=== PATIENT | female | born 1940 | race Caucasian/White ===

== ENCOUNTER 2019-02-10 06:00 | Outpatient (CLI) | payer MEDICARE, OTHER, SELFPAY | END 2019-02-10 06:01 | disposition home or self-care (01) | LOC: LAB 01-26 14:26 | PROVIDERS: Family Provider Registered Nurse; PCP Registered Nurse; Visit Provider Nurse Practitioner Family | DX: I10 Essential (primary) hypertension (principal) | CPT/HCPCS: 80048; 85025 ==

== ENCOUNTER → 2020-05-18 08:35 | Outpatient (BNVA) | payer MEDICARE, OTHER, SELFPAY | PROVIDERS: Family Provider Registered Nurse; PCP Registered Nurse; Referring Provider Family Medicine; Visit Provider Orthopaedic Surgery | DX: S52.352A Displaced comminuted fracture of shaft of radius, left arm, initial encounter for closed fracture (principal); S52.612A Displaced fracture of left ulna styloid process, initial encounter for closed fracture; X58.XXXA Exposure to other specified factors, initial encounter; Z46.89 Encounter for fitting and adjustment of other specified devices; S52.502S Unspecified fracture of the lower end of left radius, sequela; X58.XXXS Exposure to other specified factors, sequela | CPT/HCPCS: 73110; 87635; 97760; L3982 ==

== ENCOUNTER 2020-05-18 10:14 | Outpatient (CLI) | payer MEDICARE, OTHER, SELFPAY | END 2020-05-18 10:15 | disposition home or self-care (01) | LOC: SPT 10:16 | PROVIDERS: Family Provider Registered Nurse; PCP Registered Nurse; Visit Provider Orthopaedic Surgery | DX: Z46.89 Encounter for fitting and adjustment of other specified devices (principal); S52.502S Unspecified fracture of the lower end of left radius, sequela; X58.XXXS Exposure to other specified factors, sequela | CPT/HCPCS: 87635; 97760; L3982 ==

== ENCOUNTER 2020-05-23 13:30 | Day surgery (SDC) | payer MEDICARE, OTHER, SELFPAY ==
[2020-05-22 16:04] VITALS: BMI 33.6
[2020-05-23] VITALS (10 sets, daily range): BP systolic 136–196; BP diastolic 70–102; PULSE 69–86; RESP 15–23; TEMP 36.3–36.6; O2SAT 93–98
--- NOTE | 2020-05-23 | SCC_ITS ---
Procedure Done: ORIF extra articular distal radius fracture left 14.7 seconds of fluoroscopic guidance, for a cumulative dose of 0.23 mGy, was provided to Dr. Castellon by the radiology department. C-arm images of the LEFT wrist were saved for the patient's permanent record. [facility]
[2020-05-23 14:28] LABS: Basophils # 0.1 10^3/uL (0.0-0.1); Basophils % 0.9 %; Eosinophils # 0.5 10^3/uL (0.0-0.8); Eosinophils % 8.2 %; Hematocrit 42.9 % (37.0-47.0); Hemoglobin 13.4 g/dL (11.5-15.3); Lymphocytes % 35.4 %; Mean Corpuscular HGB Conc 31.2 g/dL (30.0-36.0); Mean Corpuscular Hemoglobin 30.8 pg (28.0-34.0); Mean Corpuscular Volume 98.6 fL (81-99); Mean Platelet Volume 10.3 fL (7.4-10.4); Monocytes # 0.8 10^3/uL (0.2-0.9); Monocytes % 13.7 %; Neutrophils # 2.37 10^3/uL (1.8-7.7); Neutrophils % 41.6 %; Nucleated Red Blood Cells % 0 %; Platelet Count 294 10^3/cmm (130-400); Red Blood Count 4.35 10^6/uL (4.1-5.3); Red Cell Distribution Width 13.1 % (12.1-15.1); White Blood Count 5.7 10^3/uL (4.0-10.0)
[2020-05-23 14:40] LABS: Anion Gap 12.9 (5-19); Blood Urea Nitrogen 25 mg/dL (8-23); Calcium 8.7 mg/dL (8.5-10.5); Carbon Dioxide 28 mmol/L (22-29); Chloride 101 mmol/L (98-107); Glucose 86 mg/dL (65-115); Osmolality Calculated 290 mOsm/kg (285-295); Potassium 3.9 mmol/L (3.5-5.1); Sodium 138 mmol/L (136-145)
--- NOTE | 2020-05-23 14:52 | P.ANESASSM_ITS ---
Pre-Anesthetic Assessment Pre-Anesthetic Assessment: Height/Weight: Height 1.57 m Weight 83.461 kg Preop Diagnosis: left distal radius fracture Proposed Procedure: Operation Date: 05/23/20 14:55 Proposed Procedures p ORIF left distal radius fracture 25219 S52.502A(Left) - Raul Castellon, DO Was Beta Jhonny taken within 24 hours: N/A Was Clonidine taken within 24 h ours: N/A Last intake: Intake Last Liquid Date 05/23/20 Last Liquid Time 08:00 Last Solid Date 05/22/20 Last Solid Time 18:00 Social: Social History: No alcohol and No tobacco Exam: Pre-Anes Outpt Exam: alert, oriented x 3, clear to auscultation bilaterally and regular rate & rhythm Airway: Submandibular: WNL Cervical ROM: WNL MP: 2 Dentition: False CV/HEM: CV/HEM: HTN Metabolic: Metabolic: Morbid obesity Neuropsych: Neuropsych: Anxiety and Dementia Anesthetic Plan: ASA status: 3 Anesthesia: General Risk of > 500 ml blood loss (7ml/kg in children): No PFSH Anesthesia PFSH: Social History Smoking and tobacco status: never smoked Quit status (tobacco): not considering quitting Second hand smoke exposure: No Smoking risk assessment/counseling performed?: Yes Alcohol intake: never Desire information about alcohol rehabilitation?: No Counseling given: Yes Desire information about substance/drug rehabilitation?: No Counseling given: Yes Adopted: No Caregiver/support person: Yes Lives independently: No Household members: none Housing: [facility] Marital status: / Number of children: 3 Number of grandchildren: 4 Highest education level completed: High School Graduate service: No Current occupational status: disabled Current occupational exposures/hazards: No Pets and animals: No History of recent travel: No Leisure activites: games Sexually active: No Current gender identity: Female Jacquelyn/Holiness: Hinduism Special jacquelyn needs: No Agree to transfusion: Yes Financial difficulty paying for basics: Not Applicable Data Anesthesia CBC & Chem 7: 05/23/20 14:12 05/23/20 14:12 Other Labs: Laboratory Results - last 48 hr 05/23/20 05/23/20 14:12 14:12 WBC 5.7 RBC 4.35 Hgb 13.4 Hct 42.9 MCV 98.6 MCH 30.8 MCHC 31.2 RDW 13.1 Plt Count 294 MPV 10.3 Neut % (Auto) 41.6 Lymph % (Auto) 35.4 Wilson % (Auto) 13.7 Eos % (Auto) 8.2 Baso % (Auto) 0.9 Neut # (Auto) 2.37 Lymph # (Auto) 2.0 Wilson # (Auto) 0.8 Eos # (Auto) 0.5 Baso # (Auto) 0.1 Nucleated RBC % (auto) 0 Nucleated RBCs # 0.0 Sodium 138 Potassium 3.9 Chloride 101 Carbon Dioxide 28 Anion Gap 12.9 BUN 25 H Creatinine 0.8 GFR Calculation Not Reportable Glucose 86 Calculated Osmolality 290 Calcium 8.7 Cardiac Studies: 2 No Data to Display
[2020-05-23] MEDS: sodium chloride 0.9% 1,000 ML 30 ML IV (15:03)
--- NOTE | 2020-05-23 15:50 | W.PM.OPSUD ---
Surgery/Procedure H&P Update DATE OF PROCEDURE: May 23, 2020 DATE H&P PERFORMED: 05/18/20 H&P UPDATE INFORMATION: I have reviewed H&P completed within last 30 days, I have examined patient prior to procedure and No changes to prior documentation PREOP DIAGNOSIS: left distal radius fracture PLANNED PROCEDURE: Operation Date: 05/23/20 14:55 Proposed Procedures p ORIF left distal radius fracture 09237 S52.502A(Left) - Raul Castellon DO
--- NOTE | 2020-05-23 16:58 | XR_ITS ---
WS: [id number] Left wrist, 3 C-arm fluoroscopy views, 05/23/2020 Clinical Data: ORIF LEFT RADIUS Comparison: Left wrist, 05/18/2020. Findings: There is a ventral plate applied to the distal left radius. The plate is fixed with multiple screws t o reduce the comminuted impacted fracture. XR/XR wrist LT 2V [id number] Impression: Internal fixation of distal left radial fracture.
[2020-05-23] MEDS: fentaNYL 50 mcg/mL INJ 2mL IVP (17:13)
--- NOTE | 2020-05-23 17:18 | PM.OP ---
Operative Report Date of procedure: May 23, 2020 Pre-op Diagnosis: left distal radius fracture Post-op diagnosis: same Procedure Done: ORIF extra articular distal radius fracture left Surgeon: Raul Castellon Anesthesia: General Estimated blood loss (mL): 5 Tourniquet time (min): 40 Condition: stable Disposition: PACU Procedure: ORIF extra articular distal radius fracture Patient had a distal radius fracture. Which is extra-articular. She is brought to the operative suite placed in the supine position. All areas of impingement were well-padded. Patient was then prepped and draped normal sterile fashion. Tourniquet was applied. Trunk was put up. Skin incision made over the radius. The flexor carpi radialis and radial artery were identified and retracted the pronator quadratus was reflected ulnarly fracture was identified reduced with a Garland and held in position and then a [place] 3 hole plate was placed distally 3 screws were placed distally with locking screws and 2 screws proximally. AP lateral fluoroscopy ensured that the fracture and hardware were in appropriate positions. Wounds were then irrigated and skin was closed with 2-0 Vicryl and Monocryl suture. And then skin glue was used. Patient is placed back into her splint and transferred to the PACU in stable condition.
--- NOTE | 2020-05-23 18:03 | SUR.PHASEII ---
spoke with dali at [facility] and report given,prescription for norco not signed by dr sandhu and dali stated that they have norco for her there but doesn't like to give to her because it makes her more confused,prescription torn up and placed into shredder box witnessed per renae gilman community health educator
--- NOTE | 2020-05-24 05:57 | ANE.PACU2 ---
Inpatient post-anesthesia follow up: Airway intact: Yes Vital signs: Temperature 98 F Pulse Rate 71 Respiratory Rate 15 Blood Pressure 169/98 Pulse Oximetry 94 Oxygen Delivery Me thod Room Air Oxygen Flow Rate 6 Fraction of Inspir ed Oxygen Hydration adequate: Yes Nausea and vomiting: No Pain level: 2 Mental status: Baseline
--- NOTE | 2020-05-24 13:12 | SUR.PHASEI ---
FENTANYL 50MCG WASTED AFTER FENTANYL DOSE GIVEN 05/23/20. WASTED WITH 2ND RN PESCA.
--- NOTE | 2020-05-24 13:50 | SUR.PHASEII ---
Addendum entered by Emily Hill 05/24/20 13:51: today at 1312 Original Note: witnessed 50 mcg fentanyl with reny chan rn on this pt
== END 2020-05-23 18:30 | disposition home or self-care (01) ==
PROVIDERS: PCP Registered Nurse; Visit Provider Orthopaedic Surgery
PROC: (CPT 25607; principal; 2020-05-23 14:35)
DX: S52.552A Other extraarticular fracture of lower end of left radius, initial encounter for closed fracture (principal); W19.XXXA Unspecified fall, initial encounter; I10 Essential (primary) hypertension; E66.01 Morbid (severe) obesity due to excess calories; Z68.33 Body mass index [BMI] 33.0-33.9, adult; F41.9 Anxiety disorder, unspecified; F32.9 Major depressive disorder, single episode, unspecified
CPT/HCPCS: 25607; 36415; 73100; 76000; 80048; 85025; C1713; J2704; J3010; J7030

== ENCOUNTER → 2020-07-05 15:21 | Outpatient (BNVA) | payer MEDICARE, OTHER, SELFPAY | PROVIDERS: PCP Registered Nurse; Visit Provider Orthopaedic Surgery | DX: S52.502A Unspecified fracture of the lower end of left radius, initial encounter for closed fracture (principal); X58.XXXA Exposure to other specified factors, initial encounter | CPT/HCPCS: 73110 ==

== ENCOUNTER → 2020-08-16 15:53 | Outpatient (BNVA) | payer MEDICARE, OTHER, SELFPAY | PROVIDERS: PCP Registered Nurse; Visit Provider Orthopaedic Surgery | DX: Z48.89 Encounter for other specified surgical aftercare (principal) | CPT/HCPCS: 73110 ==

== ENCOUNTER → 2020-09-20 09:20 | Outpatient (BNVA) | payer MEDICARE, OTHER, SELFPAY | PROVIDERS: PCP Registered Nurse; Visit Provider Specialist | DX: M25.569 Pain in unspecified knee (principal); M17.0 Bilateral primary osteoarthritis of knee; M25.761 Osteophyte, right knee | CPT/HCPCS: 73560; 73565 ==

== ENCOUNTER 2020-10-08 10:20 | Emergency (ER) | payer MEDICARE, OTHER, SELFPAY ==
[2020-10-08 10:23] VITALS: BP 136/78; PULSE 76; RESP 15; TEMP 36.7; O2SAT 97; BMI 32.0
--- NOTE | 2020-10-08 10:29 | CT_ITS ---
WS: [id number] CT HEAD NONCONTRAST HISTORY: fall TECHNIQUE: Contiguous axial imaging performed through the brain in 2.5 mm imaging. Bone and soft tiss ue windows. Sagittal and coronal reformats reviewed. All CT scans at [facility] use at ast one of these dose optimization techniques: automated exposure control; mA and/or kV adjustment pe r patient size (includes targeted exams where dose is matched to clinical indication); or iterative r econstruction. DLP: 725.35 mGy.cm COMPARISON: None available. No acute intracranial hemorrhage, midline shift or mass effect. Mild atrophy and mild chronic microvascular ischemic disease. Lacunar infarcts in the external capsul e bilaterally. Ventricles: No inferior displacement of cerebellar tonsils. Paranasal sinuses: As visualized are clear. Mastoid air cells: Well pneumatized. Calvarium and scalp: No skull fracture. Moderate soft tissue laceration over the posterior calvarium towards the vertex. CT/CT head wo con* [id number] IMPRESSION: 1. No acute intracranial hemorrhage or edema. 2. Moderate scalp laceration over the posterior calvarium. No fracture. 3. Mild atrophy and chronic microvascular ischemic disease.
--- NOTE | 2020-10-08 10:34 | CT_ITS ---
WS: [id number] CT CERVICAL SPINE HISTORY: fall TECHNIQUE: Contiguous 2.5 mm axial imaging performed through the entire cervical spine. Sagittal and coronal reformats also performed. All CT scans at [facility] use at least one of these do se optimization techniques: automated exposure control; mA and/or kV adjustment per patient size (inc ludes targeted exams where dose is matched to clinical indication); or iterative reconstruction. DLP: 465.65 mGy.cm COMPARISON: None available. Increase in the cervical lordosis and scoliosis. Marked RIGHT convex curvature of the cervical spine. Fusion across the LEFT C3-4 facet joints. Otherwise there is significant narrowing of the facet join ts bilaterally. No fractures are identified. Craniocervical junction is normally aligned. Lateral mas ses of C1 and C2 are normally aligned. The odontoid is intact. Marked facet joint arthritis with mult ilevel foraminal stenosis. Lung apices are clear. CT/CT cervical spin wo con* [id number] IMPRESSION: 1. No acute cervical spine fracture. 2. 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
--- NOTE | 2020-10-08 10:34 | W.ED.FALL ---
HPI - Fall General: Chief Complaint: Fall Stated Complaint: LACERATION TO BACK OF HEAD, FALL Time Seen by Provider: 10/08/20 10:21 History of Present Illness: HPI Narrative: Patient arrived via ambulance from group home with ground-level fall striking her head no loss of consciousness. Patient did slip. Patient is not on any blood thinners presently. Does have a laceration back of the head has no complaints of pain. complaint: fall Onset (ago): minute(s) Fall from: standing Fall witnessed: yes, by living facility staff Place fall occurred: group home/SNF Loss of consciousness: None Prolonged down time: no Symptoms prior to fall: none Context: tripped/slipped Location of injury: head Severity: mild Severity scale (1-10): 1 Associated symptoms-after fall: Reports no associated symptoms; Denies abdominal pain, chest pain or headache(s) Review of Systems Const: Denies: fever(s), chills or body aches Eyes: Denies: change in vision or blurry vision ENMT: Denies: throat pain or nasal congestion Card: Denies: chest pain or dyspnea on exertion Resp: Denies: dyspnea, productive cough or non-productive cough GI: Denies: abdominal pain, nausea or vomiting Musc: Denies: extremity pain Skin/Breast: Reports: other (Laceration back of scalp no active bleeding from a fall this morning); Denies: rash Neuro: Denies: headache(s) Psych: Denies: anxiety or depression Raúl/Lymph: Denies: easy bruising PFSH ED PFSH: Social History Quit status (tobacco): not considering quitting Second hand smoke exposure: No Smoking risk assessment/counseling performed?: Yes Alcohol intake: never Desire information about alcohol rehabilitation?: No Counseling given: Yes Desire information about substance/drug rehabilitation?: No Counseling given: Yes Adopted: No Caregiver/support person: Yes Lives independently: No Household members: none Housing: [facility] Marital status: / Number of children: 3 Number of grandchildren: 4 Highest education level completed: High School Graduate service: No Current occupational status: disabled Current occupational exposures/hazards: No Pets and animals: No History of recent travel: No Leisure activites: games Sexually active: No Current gender identity: Female 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 [employer] Special jacquelyn needs: No Agree to transfusion: Yes Financial difficulty paying for basics: Not Applicable Physical Exam Narrative: EXAM NARRATIVE: Vital signs stable, patient is conversing appropriately Const: COMMON NORMALS: no acute distress and patient oriented x3 GENERAL APPEARANCE: cooperative Neck/C-Spine: COMMON NORMALS: full ROM CERVICAL SPINE: Yes cervical ROM normal : COMMON NORMALS: Yes no CVA tenderness BLADDER/KIDNEY EXAM: Yes no CVA tenderness Back/Pelvis: COMMON NORMALS: no CVA tenderness THORACIC SPINE/UPPER BACK: Yes normal to inspection LUMBAR SPINE/LOWER BACK: Yes normal to inspection Neuro: COMMON NORMALS: patient oriented x3, moves all extremities, no focal motor deficits and no sensory deficits noted Psych: COMMON NORMALS: cooperative OTHER: Does appear to have short-term memory loss/dementia Skin: OTHER: Stellate laceration back of head with no active bleeding. Irrigated examined closed with dennis Procedures Laceration Laceration 1: Site: scalp Description: stellate Depth: simple, single layer Pre-repair: wound explored and irrigated extensively Skin layer closed with: other (Allen) Number of sutures: 5 Course Vital Signs: Vital signs: Vital Signs Temperature 98.0 F 10/08/20 10:23 Pulse Rate 80 10/08/20 10:53 Respiratory Rate 14 10/08/20 10:53 Blood Pressure 137/76 10/08/20 10:53 Pulse Oximetry 95 10/08/20 10:53 MDM - Fall MDM Narrative: Medical decision making narrative: Wound was closed with dennis. No other injuries noted. Wrist exam is negative for any concerning problems CT of neck and head did not show any abnormalities. Patient's vital signs are stable throughout stay. Patient was discharged back home with [id number] who agreed to take her home. Patient follow-up primary care provider if worsening symptoms or return the ER. Discharge Plan Discharge Patient Disposition: Home Clinical Impression: Laceration of scalp Qualifiers: Encounter type: initial encounter Qualified Code(s): S01.01XA - Laceration without foreign body of scalp, initial encounter Fall Qualifiers: Encounter type: initial encounter Qualified Code(s): W19.XXXA - Unspecified fall, initial encounter Condition: Stable Prescriptions: No Action amlodipine 10 mg tablet 10 mg PO DAILY@20 RF: 0 donepezil 10 mg tablet 10 mg PO DAILY@20 RF: 0 memantine 10 mg tablet 10 mg PO BID@08,20 RF: 0 simvastatin 5 mg tablet 5 mg PO DAILY@18 RF: 0 alprazolam 0.25 mg tablet 0.25 mg PO BID@06,14 RF: 0 sertraline 100 mg tablet 100 mg PO DAILY@20 RF: 0 quetiapine 100 mg tablet 100 mg PO DAILY@20 RF: 0 naproxen sodium [Aleve] 220 mg capsule 220 mg PO DAILY@08 RF: 0 loratadine [Claritin] 10 mg tablet 10 mg PO DAILY@08 RF: 0 tramadol 50 mg Tablet 50 mg PO Q6H PRN (Reason: Pain) RF: 0 alprazolam 0.25 mg Tablet 0.25 mg PO DAILY PRN (Reason: Anxiety) RF: 0 Aleve 220 mg Tablet 220 mg PO BID PRN (Reason: Pain) RF: 0 omeprazole 20 mg Capsule,Delayed Release(Dr/Ec) 20 mg PO DAILY@06 RF: 0 bisacodyl 5 mg Tablet 10 mg PO BID PRN (Reason: Constipation) RF: 0 quetiapine 50 mg Tablet 75 mg PO DAILY@08 RF: 0 Discharge Orders: Discharge ED (Routine); Ordered 10/08/20 Ordered By: Jamar Castillo Referrals: Myranda Willams FNP [Primary Care Provider] - Discharge Diet: Usual diet Discharge Activity: Increase activity as tolerated Patient Instructions: Staple Care (ED) Activity Restrictions/Additional Instructions: Follow-up primary care provider to group home. Keep wound clean with soap and water. Allen out in 7 days. Coding Level of Care Code ED Tool Profiling Machine Set Up Operator for Kinjal Fwd Exam Detailed
[2020-10-08 10:53] VITALS: BP 137/76; PULSE 80; RESP 14; O2SAT 95
--- NOTE | 2020-10-08 11:10 | PC.PHAR ---
pt is from [facility]
== END 2020-10-08 11:49 | disposition home or self-care (01) ==
PROVIDERS: Emergency Provider Nurse Practitioner Family; PCP Registered Nurse
DX: S01.01XA Laceration without foreign body of scalp, initial encounter (principal); W19.XXXA Unspecified fall, initial encounter
CPT/HCPCS: 12002; 70450; 72125; 99283

== ENCOUNTER → 2021-07-09 10:15 | Outpatient (BNVA) | payer MEDICARE, OTHER, MEDICAID, SELFPAY | PROVIDERS: PCP Registered Nurse; Visit Provider Podiatrist Foot & Ankle Surgery | DX: L60.3 Nail dystrophy (principal); L84 Corns and callosities; E11.8 Type 2 diabetes mellitus with unspecified complications; I73.9 Peripheral vascular disease, unspecified; M20.41 Other hammer toe(s) (acquired), right foot; M20.42 Other hammer toe(s) (acquired), left foot; Z71.89 Other specified counseling; M79.672 Pain in left foot; M79.671 Pain in right foot | CPT/HCPCS: 11055; 11721 ==

== ENCOUNTER → 2021-07-11 10:26 | Outpatient (BNVA) | payer MEDICARE, OTHER, SELFPAY | PROVIDERS: PCP Registered Nurse; Visit Provider Specialist | DX: M25.562 Pain in left knee (principal); M17.12 Unilateral primary osteoarthritis, left knee | CPT/HCPCS: 20610; J7326 ==

== ENCOUNTER → 2021-10-31 08:23 | Outpatient (BNVA) | payer MEDICARE, OTHER, MEDICAID, SELFPAY | PROVIDERS: PCP Family Medicine; Visit Provider Specialist | DX: M17.11 Unilateral primary osteoarthritis, right knee (principal); Z71.89 Other specified counseling | CPT/HCPCS: 20610 ==

== ENCOUNTER → 2021-11-12 10:24 | Outpatient (BNVA) | payer MEDICARE, OTHER, MEDICAID, SELFPAY | PROVIDERS: PCP Family Medicine; Visit Provider Podiatrist Foot & Ankle Surgery | DX: E11.8 Type 2 diabetes mellitus with unspecified complications (principal); I73.9 Peripheral vascular disease, unspecified; L60.3 Nail dystrophy; M20.41 Other hammer toe(s) (acquired), right foot; M20.42 Other hammer toe(s) (acquired), left foot; L84 Corns and callosities; Z71.89 Other specified counseling | CPT/HCPCS: 11055; 11721 ==

== ENCOUNTER → 2022-01-23 10:26 | Outpatient (BNVA) | payer MEDICARE, OTHER, MEDICAID, SELFPAY | PROVIDERS: PCP Family Medicine; Visit Provider Specialist | DX: M17.12 Unilateral primary osteoarthritis, left knee (principal); Z71.89 Other specified counseling | CPT/HCPCS: 20610; J7326 ==

== ENCOUNTER → 2022-03-13 15:24 | Outpatient (BNVA) | payer MEDICARE, OTHER, MEDICAID, SELFPAY | PROVIDERS: PCP Family Medicine; Visit Provider Podiatrist Foot & Ankle Surgery | DX: I73.9 Peripheral vascular disease, unspecified (principal); E11.8 Type 2 diabetes mellitus with unspecified complications; L60.3 Nail dystrophy; M20.41 Other hammer toe(s) (acquired), right foot; M20.42 Other hammer toe(s) (acquired), left foot; L84 Corns and callosities; Z71.89 Other specified counseling | CPT/HCPCS: 11055; 11721 ==

== ENCOUNTER → 2022-07-08 15:07 | Outpatient (BNVA) | payer MEDICARE, OTHER, MEDICAID, SELFPAY | PROVIDERS: PCP Family Medicine; Visit Provider Podiatrist Foot & Ankle Surgery | DX: I73.9 Peripheral vascular disease, unspecified (principal); L60.3 Nail dystrophy; M20.41 Other hammer toe(s) (acquired), right foot; M20.42 Other hammer toe(s) (acquired), left foot; L84 Corns and callosities; Z71.89 Other specified counseling | CPT/HCPCS: 11055; 11721 ==

== ENCOUNTER → 2022-07-31 08:14 | Outpatient (BNVA) | payer MEDICARE, OTHER, MEDICAID, SELFPAY | PROVIDERS: PCP Family Medicine; Visit Provider Specialist | DX: M17.0 Bilateral primary osteoarthritis of knee (principal) | CPT/HCPCS: 20610; J7326 ==

== ENCOUNTER 2022-08-08 15:22 | Outpatient (CLI) | payer MEDICARE, OTHER, MEDICAID, SELFPAY ==
[2022-08-08 15:42] LABS: Basophils # 0.1 10^3/uL (0.0-0.1); Basophils % 0.4 %; Eosinophils % 0.1 %; Hematocrit 49.1 % (37.0-47.0); Lymphocytes # 1.7 10^3/uL (0.8-4.8); Lymphocytes % 10.3 %; Mean Corpuscular HGB Conc 30.5 g/dL (30.0-36.0); Mean Corpuscular Hemoglobin 29.8 pg (28.0-34.0); Mean Corpuscular Volume 97.6 fl (81-99); Mean Platelet Volume 11.6 fL (7.4-10.4); Monocytes # 1.2 10^3/uL (0.2-0.9); Monocytes % 7.3 %; Neutrophils % 79.2 %; Nucleated Red Blood Cells % 0 %; Platelet Count 201 10^3/cmm (130-400); Red Blood Count 5.03 10^6/uL (4.1-5.3); Red Cell Distribution Width 14.6 % (12.1-15.1); White Blood Count 16.5 10^3/uL (4.0-10.0)
[2022-08-08 16:25] LABS: Urine Appearance Cloudy (CLEAR); Urine Color Amber (Yellow)
[2022-08-08 16:26] LABS: Bilirubin Urine 1+ (Negative); Blood Urine 3+ (Negative); Glucose Urine UA Norm (Normal); Ketones Urine Negative (Negative); Leukocyte Esterase Urine 2+ (Negative); Nitrate Urine Positive (Negative); Protein Urine 1+ (Negative); Urobilinogen Urine Norm (Negative); pH Urine 5 (5-7)
[2022-08-08 16:27] LABS: Add Urine Culture? Yes; Amorphous Sediment Urine 1+ /hpf; Bacteria Urine 4+ /hpf; Mucus Urine 1+ /hpf; Squamous Epithelial Cell Urine 0-4 /hpf (0-5)
== END 2022-08-08 15:23 | disposition home or self-care (01) ==
LOC: LAB 15:27
PROVIDERS: PCP Family Medicine; Visit Provider Nurse Practitioner Family
DX: R82.71 Bacteriuria (principal)
CPT/HCPCS: 81001; 85025; 87077; 87086; 87186

== ENCOUNTER → 2022-09-16 15:10 | Outpatient (BNVA) | payer MEDICARE, OTHER, MEDICAID, SELFPAY | PROVIDERS: PCP Family Medicine; Visit Provider Podiatrist Foot & Ankle Surgery | DX: L60.8 Other nail disorders (principal); I73.9 Peripheral vascular disease, unspecified; L60.3 Nail dystrophy; M20.41 Other hammer toe(s) (acquired), right foot; M20.42 Other hammer toe(s) (acquired), left foot; L84 Corns and callosities | CPT/HCPCS: 11055; 11721 ==

== ENCOUNTER → 2022-12-16 15:28 | Outpatient (BNVA) | payer OTHER, SELFPAY | PROVIDERS: PCP Family Medicine; Visit Provider Podiatrist Foot & Ankle Surgery | DX: L60.8 Other nail disorders (principal); I73.9 Peripheral vascular disease, unspecified; L60.3 Nail dystrophy | CPT/HCPCS: 11721 ==

== ENCOUNTER → 2023-02-12 10:09 | Outpatient (BNVA) | payer OTHER, SELFPAY | PROVIDERS: PCP Family Medicine; Visit Provider Nurse Practitioner | DX: M17.0 Bilateral primary osteoarthritis of knee (principal) | CPT/HCPCS: 20610; J7326 ==

== ENCOUNTER → 2023-08-05 15:00 | Outpatient (BNVA) | payer MEDICARE, OTHER, MEDICAID, SELFPAY | PROVIDERS: PCP Family Medicine; Visit Provider Podiatrist Foot & Ankle Surgery | DX: I73.9 Peripheral vascular disease, unspecified (principal); L60.3 Nail dystrophy | CPT/HCPCS: 11721 ==

== ENCOUNTER → 2023-08-21 10:11 | Outpatient (BNVA) | payer MEDICARE, OTHER, MEDICAID, SELFPAY | PROVIDERS: PCP Family Medicine; Visit Provider Nurse Practitioner | DX: M17.0 Bilateral primary osteoarthritis of knee (principal) | CPT/HCPCS: 20610 ==

== ENCOUNTER 2024-01-23 14:30 | Inpatient (IN) | payer MEDICARE, MEDICAID, SELFPAY ==
[2024-01-23 14:31] VITALS: BP 136/86; PULSE 111; RESP 18; TEMP 37.1; O2SAT 91
--- NOTE | 2024-01-23 14:34 | XRR_ITS ---
PROCEDURE INFORMATION: Exam: XR Chest Exam date and time: 01/23/2024 2:39 PM Age: 83 years old Clinical indication: Other: Weakness; Patient HX: Arrives with [facility] from [facility]- C/O PT not walking around like usual and per nh this is how she acts with a UTI. TECHNIQUE: Imaging protocol: Radiologic exam of the chest. Views: 1 view. COMPARISON: CR XR chest 1V [id number] 02/25/2018 6:50 PM FINDINGS: Lungs: Unremarkable. No consolidation. Pleural spaces: Unremarkable. No pleural effusion. No pneumothorax. Heart/Mediastinum: There has been development of a focal density within the right cardiophrenic angle which appears to contain gas within the superior portion. Bones/joints: Unremarkable. XR/XR chest 1V portable [id number] IMPRESSION: Development of a focal rounded density within the right cardiophrenic angle. These findings may reflect a distended hiatal hernia. The possibility of diffuse cardiac enlargement owing to underlying pericardial effusion is felt less likely given the appearance. Follow-up CT of the chest is suggested for further evaluation
--- NOTE | 2024-01-23 14:35 | ED_ITS ---
HPI - Weakness 2 General: Chief complaint: Urogenital-Female Stated complaint: weakness Time Seen by Provider: 01/23/24 14:32 History of Present Illness: 83-year-old woman with a history of christina ntia who is currently in a behavioral unit at a [facility], hypertension GERD and hyperlipidemia who presents the emergency room by ambulance with mental status changes. They says she normally walks around the unit but today she will not get up or open her eyes or answer any questions. No reports of fevers. No reports of vomiting. She will not answer any questions at this time but is awake. Review of Systems 2 General: Reports: ROS unobtainable due to medical condition PFSH ED 2 PFSH: Social History Smoking and tobacco/nicotine status: unknown if used tobacco/nicotine Quit status (tobacco/nicotine): not considering quitting Second hand smoke exposure: No Alcohol intake: never Substance/Drug Use: never Adopted: No Caregiver/support person: Yes Lives independently: No Household members: none Housing: Half-Way Marital status: / Number of children: 3 Number of grandchildren: 4 Highest education level completed: High School Graduate service: No Current occupational status: disabled Current occupational exposures/hazards: No Pets and animals: No Leisure activites: games Sexually active: No Do you think of yourself as: Straight/Heterosexual Current gender identity: Female Jacquelyn/Jewish: Hindu Special jacquelyn needs: No Agree to transfusion: Yes Physical Exam 2 Narrative: EXAM NARRATIVE: General: Alert, no acute distress. Skin: Warm, dry. Head: Normocephalic, atraumatic. Neck: Supple, trachea midline. Eye: Extraocular movements are intact. Ears, nose, mouth and throat: mucosa moist. Cardiovascular: Regular, Normal peripheral perfusion. Respiratory: Lungs are clear to auscultation, respirations are non-labored, breath sounds are equal, Symmetrical chest wall expansion. Gastrointestinal: Soft, Nontender, Non distended, Normal bowel sounds. Musculoskeletal: Normal ROM, no deformity. Neurological: Alert but not oriented, No focal neurological deficit observed. Psychiatric: Unable to assess Course 2 Vital Signs: Vital signs: Vital Signs Temperature 98.8 F 01/23/24 14:31 Pulse Rate 73 01/23/24 16:21 Respiratory Rate 18 01/23/24 16:21 Blood Pressure 148/103 01/23/24 16:21 Pulse Oximetry 92 01/23/24 16:21 Oxygen Delivery Me thod Room Air 01/23/24 16:21 MDM - Weakness Medical Decision Making Medical decision making: Differential diagnosis for patient presenting with generalized weakness including but not limited to and based on the above HPI, review of systems and physical exam: Sepsis. Dehydration. Renal failure. Electrolyte abnormalities. Anemia. Congestive heart failure. Hypotension. Coronary syndrome. Hepatitis. Cirrhosis. Infections such as pneumonia, urinary tract infection, [place]ne illness, Cellulitis, Viral infections including influenza and Covid-19. Workup: labwork and lab/exam driven imaging ordered to evaluate, rule in and rule out above pathologies. Chest x-ray: There is a rounded density in the right chest that is likely a hiatal hernia. CT was recommended. This is ordered. No acute process. No infiltrate. No pneumothorax. This was reviewed and interpreted by myself the emergency room physician. I also reviewed the radiology report. CT of the chest without contrast: No acute process. There is a sliding hiatal hernia. This was reviewed and interpreted by myself the emergency room physician. I also reviewed the radiology report. Lab Review: Laboratory results were reviewed and interpreted by myself the emergency room physician. No leukocytosis. Patient does have some acute renal insufficiency with a BUN/creatinine of 53 and 1.8. Also sodium is 155. Appears this is likely secondary to dehydration. She also has a significant urinary tract infection. I reviewed the patient's medical record. Reexamination: Patient remained stable. She has got no focal motor deficits. She actually peers a little bit more alert than she did earlier. Consultation: I spoke with Dr. Weber who is on-call for the hospitalist service who agrees to admission. Patient has been on palliative care but Dr. Weber has talked with the family and they want to treat this acute problem with fluids and antibiotics. Assessment and plan: Urinary tract infection Hypernatremia Advanced dementia Metabolic encephalopathy Acute renal insufficiency ?Normal saline bolus, IV cefepime -I discussed the patient with the hospitalist on-call who is admitting the patient. - Discussed findings and plan with patient. Answered any questions. - All laboratory values were reviewed and interpreted personally by myself, the ER physician - All imaging was reviewed and interpreted personally by myself, the ER physician. - Evaluation and treatment of this problem were appropriate in the emergency setting Lab Data 01/23/24 15:04 01/23/24 15:04 Radiology Impressions Chest X-Ray 01/23/24 14:34 IMPRESSION: Development of a focal rounded density within the right cardiophrenic angle. These findings may reflect a distended hiatal hernia. The possibility of diffuse cardiac enlargement owing to underlying pericardial effusion is felt less likely given the appearance. Follow-up CT of the chest is suggested for further evaluation Chest CT 01/23/24 15:27 IMPRESSION: 1. [id number] sliding-type hiatal hernia which accounts for the density noted on the previous chest x-ray. 2. No pericardial effusion or other acute abnormality Laboratory Results WBC 6.98 10^3/uL (3.29-11.43) 01/23/24 15:04 RBC 5.12 10^6/uL (3.85-5.65) 01/23/24 15:04 Hgb 15.80 g/dL (11.27-16.99) 01/23/24 15:04 Hct 51.6 % (36-47) H 01/23/24 15:04 MCV 100.8 fl (85-98) H 01/23/24 15:04 MCH 30.9 pg (27-33) 01/23/24 15:04 MCHC 30.6 g/dL (30-55) 01/23/24 15:04 RDW 12.9 % (12.1-15.1) 01/23/24 15:04 Plt Count 209 10^3/cmm (157-399) 01/23/24 15:04 MPV 12.2 fL (7.4-10.4) H 01/23/24 15:04 Neut % (Auto) 48.9 % 01/23/24 15:04 Lymph % (Auto) 38.7 % 01/23/24 15:04 [place] % (Auto) 7.6 % 01/23/24 15:04 Eos % (Auto) 4.0 % 01/23/24 15:04 Baso % (Auto) 0.7 % 01/23/24 15:04 Neut # (Auto) 3.41 10^3/uL (1.8-7.7) 01/23/24 15:04 Lymph # (Auto) 2.7 10^3/uL (0.8-4.8) 01/23/24 15:04 [place] # (Auto) 0.5 10^3/uL (0.2-0.9) 01/23/24 15:04 Eos # (Auto) 0.3 10^3/uL (0.0-0.8) 01/23/24 15:04 Baso # (Auto) 0.1 10^3/uL (0.0-0.1) 01/23/24 15:04 Nucleated RBC % (auto) 0 % 01/23/24 15:04 Nucleated RBCs # 0.0 /100WBC 01/23/24 15:04 Sodium 155 mmol/L (136-145) H 01/23/24 15:04 Potassium 3.9 mmol/L (3.5-5.1) 01/23/24 15:04 Chloride 119 mmol/L (98-107) H 01/23/24 15:04 Carbon Dioxide 25 mmol/L (22-29) 01/23/24 15:04 Anion Gap 14.9 (5-19) 01/23/24 15:04 BUN 53 mg/dL (8-23) H 01/23/24 15:04 Creatinine 1.8 mg/dL (0.5-0.9) H 01/23/24 15:04 GFR Calculation Not Reportable 01/23/24 15:04 Glucose 126 mg/dL (65-115) H 01/23/24 15:04 Calculated Osmolality 336 mOsm/kg (285-295) H 01/23/24 15:04 Lactic Acid 1.0 mmol/L (0.5-2.2) 01/23/24 15:04 Calcium 9.2 mg/dL (8.5-10.5) 01/23/24 15:04 Total Bilirubin 0.4 mg/dL (0.15-1.2) 01/23/24 15:04 AST 18 U/L (0-32) 01/23/24 15:04 ALT 15 U/L (0-33) 01/23/24 15:04 Alkaline Phosphatase 65 U/L (35-105) 01/23/24 15:04 Total Protein 7.9 g/dL (6.6-8.7) 01/23/24 15:04 Albumin 4.3 g/dL (3.5-5.2) 01/23/24 15:04 Globulin 3.6 g/dL (1.3-4.6) 01/23/24 15:04 Urine Color Yellow (Yellow) 01/23/24 15:00 Urine Appearance Cloudy (CLEAR) A 01/23/24 15:00 Urine pH 5.5 (5-7) 01/23/24 15:00 Ur Specific [place] 1.022 (1.005-1.030) 01/23/24 15:00 Urine Protein 1+ (Negative) A 01/23/24 15:00 Urine Glucose (UA) Negative (Normal) 01/23/24 15:00 Urine Ketones Negative (Negative) 01/23/24 15:00 Urine Blood Negative (Negative) 01/23/24 15:00 Urine Nitrate Positive (Negative) A 01/23/24 15:00 Urine Bilirubin Negative (Negative) 01/23/24 15:00 Urine Urobilinogen 1.0 mg/dL (Negative) 01/23/24 15:00 Ur Leukocyte Esterase 1+ (Negative) A 01/23/24 15:00 Urine RBC 0-2 /hpf (0-2) 01/23/24 15:00 Urine WBC 21-50 /hpf (0-5) H 01/23/24 15:00 Ur Squamous Epith Cells 0-5 /hpf (0-5) 01/23/24 15:00 Amorphous Sediment Not Reportable 01/23/24 15:00 Urine Bacteria 4+ /hpf (NONE) H 01/23/24 15:00 Hyaline Casts 3.71 /lpf 01/23/24 15:00 Coronavirus (PCR) Negative (Negative) 01/23/24 15:03 Influenza A (PCR) Negative (Negative) 01/23/24 15:03 Influenza Type B (PCR) Negative (Negative) 01/23/24 15:03 RSV (PCR) Negative (Negative) 01/23/24 15:03 All radiology interpretation(s) finalized by discharge Discharge Plan Discharge Patient Disposition: Admitted As Inpatient Clinical Impression: Hypernatremia, Urinary tract infection, Advanced dementia, Metabolic encephalopathy, Acute renal insufficiency Condition: Stable Coding Level of Care Code ED Ambulance Driver for [facility] Fwd Related Data Home Medications Medication Instructions Recorded Confirmed alprazolam 0.25 mg tablet 0.25 mg PO BID@05/17/20 01/23/24 amlodipine 10 mg tablet 10 mg PO DAILY@05/17/20 01/23/24 donepezil 10 mg tablet 10 mg PO DAILY@05/17/20 01/23/24 memantine 10 mg tablet 10 mg PO BID@05/17/20 01/23/24 sertraline 100 mg tablet 100 mg PO DAILY 05/17/20 01/23/24 loratadine 10 mg tablet (Claritin) 10 mg PO DAILY@09/14/20 01/23/24 naproxen sodium 220 mg capsule 220 mg PO DAILY@09/14/20 01/23/24 (Aleve) bisacodyl 5 mg tablet 10 mg PO BID PRN Constipation 10/08/20 01/23/24 naproxen sodium 220 mg tablet 220 mg PO BID PRN Pain 10/08/20 01/23/24 (Aleve) omeprazole 20 mg capsule,delayed 20 mg PO QAM 10/08/20 01/23/24 release quetiapine 50 mg tablet 75 mg PO BEDTIME 10/08/20 01/23/24 acetaminophen 325 mg tablet 650 mg PO Q8H PRN Pain 01/23/24 01/23/24 bisacodyl 10 mg rectal suppository 10 mg [place] DAILY PRN Constipation 01/23/24 01/23/24 (Dulcolax (bisacodyl)) megestrol 400 mg/10 mL (40 mg/mL) 400 mg PO DAILY 01/23/24 01/23/24 oral suspension quetiapine 25 mg tablet 25 mg PO QAM 01/23/24 01/23/24 sodium chloride 0.65 % nasal spray 2 spray intranasal Q8H PRN dry nose 01/23/24 01/23/24 aerosol (Deep Sea Nasal) sodium phosphates 19 gram-7 118 ml [place] DAILY PRN Constipation 01/23/24 01/23/24 gram/118 mL enema (Fleet Enema) Allergies Allergy/AdvReac Type Severity Reaction Status Date / Time ciprofloxacin Allergy Mild rash Verified 01/23/24 14:39 fluoxetine [From Prozac] Allergy Mild hives Verified 01/23/24 14:39 promethazine Allergy Mild hives Verified 01/23/24 14:39
--- NOTE | 2024-01-23 14:39 | PC.PHAR ---
Pt is from [facility]
--- NOTE | 2024-01-23 14:54 | PC.PHAR ---
Called [facility] several times-left a message. Last dosages of medications are unknown at this time. Verified without last given.
[2024-01-23 15:17] LABS: Basophils # 0.1 10^3/uL (0.0-0.1); Basophils % 0.7 %; Eosinophils # 0.3 10^3/uL (0.0-0.8); Hematocrit 51.6 % (36-47); Lymphocytes # 2.7 10^3/uL (0.8-4.8); Lymphocytes % 38.7 %; Mean Corpuscular HGB Conc 30.6 g/dL (30-55); Mean Corpuscular Hemoglobin 30.9 pg (27-33); Mean Corpuscular Volume 100.8 fl (85-98); Mean Platelet Volume 12.2 fL (7.4-10.4); Monocytes # 0.5 10^3/uL (0.2-0.9); Monocytes % 7.6 %; Neutrophils # 3.41 10^3/uL (1.8-7.7); Neutrophils % 48.9 %; Nucleated Red Blood Cells % 0 %; Platelet Count 209 10^3/cmm (157-399); Red Blood Count 5.12 10^6/uL (3.85-5.65); Red Cell Distribution Width 12.9 % (12.1-15.1); White Blood Count 6.98 10^3/uL (3.29-11.43)
[2024-01-23 15:23] LABS: Bilirubin Urine Negative (Negative); Blood Urine Negative (Negative); Glucose Urine UA Negative (Normal); Ketones Urine Negative (Negative); Leukocyte Esterase Urine 1+ (Negative); Nitrate Urine Positive (Negative); Protein Urine 1+ (Negative); Specific Gravity, Urine 1.022 (1.005-1.030); Urine Appearance Cloudy (CLEAR); Urine Color Yellow (Yellow); pH Urine 5.5 (5-7)
--- NOTE | 2024-01-23 15:27 | CTR_ITS ---
PROCEDURE INFORMATION: Exam: CT Chest Without Contrast; Diagnostic Exam date and time: 01/23/2024 3:55 PM Age: 83 years old Clinical indication: Abnormal findings; Abnormal radiologic exam of lung or chest; Additional info: Abnormal chest xray TECHNIQUE: Imaging protocol: Diagnostic computed tomography of the chest without contrast. Radiation optimization: All CT scans at this facility use at least one of these dose optimization techniques: automated exposure control; mA and/or kV adjustment per patient size (includes targeted exams where dose is matched to clinical indication); or iterative reconstruction. COMPARISON: CR (CHEST, ) 01/23/2024 2:39 PM RADIATION DOSE METRICS: Total DLP (mGy-cm): 345.29 FINDINGS: Lungs: There is mild right middle lobe scarring. No consolidating infiltrates. Pleural spaces: Unremarkable. No pneumothorax. No pleural effusion. Heart: The heart is normal in size. No pericardial effusion. Coronary arteries: There are atherosclerotic coronary artery calcifications noted. Lymph nodes: Unremarkable. No enlarged lymph nodes. Vasculature: Unremarkable. No aortic aneurysm. Gallbladder and biliary ducts: Postsurgical changes of cholecystectomy Stomach: There is a [id number] hiatal hernia with herniation of a large portion of the stomach into the right lower mediastinum accounting for the density noted on the previous chest x-ray. Bones/joints: There are degenerative changes of the thoracic spine. No acute fractures Soft tissues: Unremarkable. CT/CT chest con [id number] IMPRESSION: 1. Recixzlw-ul-[id number] sliding-type hiatal hernia which accounts for the density noted on the previous chest x-ray. 2. No pericardial effusion or other acute abnormality
[2024-01-23 15:28] LABS: Bacteria Urine 4+ /hpf; Hyaline Casts Urine 3.71 /lpf; RBC Urine 0-2 /hpf (0-2); Squamous Epithelial Cell Urine 0-5 /hpf (0-5); WBC Urine 21-50 /hpf (0-5)
[2024-01-23 15:35] LABS: Alanine Aminotransferase 15 U/L (0-33); Albumin Level 4.3 g/dL (3.5-5.2); Alkaline Phosphatase 65 U/L (35-105); Anion Gap 14.9 (5-19); Aspartate Amino Transferase 18 U/L (0-32); Blood Urea Nitrogen 53 mg/dL (8-23); Calcium 9.2 mg/dL (8.5-10.5); Carbon Dioxide 25 mmol/L (22-29); Chloride 119 mmol/L (98-107); Creatinine Clr Calc Pharmacy 22.4295; Globulin 3.6 g/dL (1.3-4.6); Glucose 126 mg/dL (65-115); Osmolality Calculated 336 mOsm/kg (285-295); Potassium 3.9 mmol/L (3.5-5.1); Sodium 155 mmol/L (136-145); Total Bilirubin 0.4 mg/dL (0.15-1.2); Total Protein 7.9 g/dL (6.6-8.7)
[2024-01-23 15:49] LABS: Add Urine Culture? Yes; UA Slide Review UA Slide Review Perf
[2024-01-23] MEDS: sodium chloride 0.9% 1,000 ML 999 ML IV (15:52)
--- NOTE | 2024-01-23 15:58 | P.HP_ITS ---
Providers/Chief Complaint 2 Primary Care Provider: Nayeli Banuelos MD Chief Complaint: weakness History of Present Illness Nury Terrell is a 83 year old female with past medical history of advanced dementia coming from intermediate, hypertension presents to the ER today with her daughter because concern for lethargy, worsening mentation which has been getting worse over last 1 week. As per daughter usually she is able to feed the patient but today patient was refusing her food and has been less steady on her feet for last 1 week. Patient's appetite has been decreasing over last 1 week. In the ER she was found to be having hyponatremia with acute kidney injury with concerns for mild UTI. Patient is awake, not alert seem to be at baseline mentation from dementia. Review of Systems 2 General: Reports: ROS unobtainable due to mental status Medications/Allergies Home Medications Medication Instructions Recorded Confirmed Last Taken Type alprazolam 0.25 mg tablet 0.25 mg PO BID@05/17/20 01/23/24 10/08/20 06:00 History amlodipine 10 mg tablet 10 mg PO DAILY@05/17/20 01/23/24 10/07/20 History donepezil 10 mg tablet 10 mg PO DAILY@05/17/20 01/23/24 10/07/20 History memantine 10 mg tablet 10 mg PO BID@05/17/20 01/23/24 10/08/20 08:00 History sertraline 100 mg tablet 100 mg PO DAILY 05/17/20 01/23/24 10/07/20 History loratadine 10 mg tablet (Claritin) 10 mg PO DAILY@09/14/20 01/23/24 10/08/20 History naproxen sodium 220 mg capsule 220 mg PO DAILY@09/14/20 01/23/24 10/08/20 History (Aleve) bisacodyl 5 mg tablet 10 mg PO BID PRN Constipation 10/08/20 01/23/24 Unknown History naproxen sodium 220 mg tablet 220 mg PO BID PRN Pain 10/08/20 01/23/24 Unknown History (Aleve) omeprazole 20 mg capsule,delayed 20 mg PO QAM 10/08/20 01/23/24 10/08/20 History release quetiapine 50 mg tablet 75 mg PO BEDTIME 0801/23/24 10/08/20 History acetaminophen 325 mg tablet 650 mg PO Q8H PRN Pain 01/23/24 01/23/24 Unknown History bisacodyl 10 mg rectal suppository 10 mg [place] DAILY PRN Constipation 01/23/24 01/23/24 Unknown History (Dulcolax (bisacodyl)) megestrol 400 mg/10 mL (40 mg/mL) 400 mg PO DAILY 01/23/24 01/23/24 Unknown History oral suspension quetiapine 25 mg tablet 25 mg PO QAM 01/23/24 01/23/24 Unknown History sodium chloride 0.65 % nasal spray 2 spray intranasal Q8H PRN dry nose 01/23/24 01/23/24 Unknown History aerosol (Deep Sea Nasal) sodium phosphates 19 gram-7 118 ml [place] DAILY PRN Constipation 01/23/24 01/23/24 Unknown History gram/118 mL enema (Fleet Enema) Allergies Allergy/AdvReac Type Severity Reaction Status Date / Time ciprofloxacin Allergy Mild rash Verified 01/23/24 14:39 fluoxetine [From Prozac] Allergy Mild hives Verified 01/23/24 14:39 promethazine Allergy Mild hives Verified 01/23/24 14:39 PFSH Acute 2 PFSH: Medical History (Updated 01/23/24 @ 17:10 by Karl Weber MD) Alzheimers disease Cognitive impairment Hyperlipidemia Tremor Vitamin B 12 deficiency Insomnia Delusional disorders Hypertension Social History Smoking and tobacco/nicotine status: unknown if used tobacco/nicotine Quit status (tobacco/nicotine): not considering quitting Second hand smoke exposure: No Alcohol intake: never Substance/Drug Use: never Adopted: No Caregiver/support person: Yes Lives independently: No Household members: none Housing: Alf Marital status: / Number of children: 3 Number of grandchildren: 4 Highest education level completed: High School Graduate service: No Current occupational status: disabled Current occupational exposures/hazards: No Pets and animals: No Leisure activites: games Sexually active: No Do you think of yourself as: Straight/Heterosexual Current gender identity: Female Jacquelyn/Zoroastrian: Adventism Special jacquelyn needs: No Agree to transfusion: Yes Vitals/I&O/Wt Last Vital Signs Temp 98.8 F 01/23/24 14:31 Pulse 111 H 01/23/24 14:31 Resp 18 01/23/24 14:31 BP 136/86 01/23/24 14:31 Pulse Ox 91 01/23/24 14:31 O2 Del Method Room Air 01/23/24 14:31 01/23/24 01/23/24 01/23/24 06:59 14:59 22:59 Intake Total 0 / 0 Balance 0 / 0 Weight last 48 hrs Weight 74.843 kg Physical Exam 2 Narrative: General: No acute distress, AO x1, dehydrated HEENT: PERRLA, pupils bilaterally equal and reactive Chest: Normal vesicular breath sounds, no added sounds, equal good air entry bilaterally CVS: S1-S2 regular, no murmurs, no tachycardia, no gallops, no rubs Abdomen: Soft, nontender, no organomegaly, bowel sounds present Neuro: No focal deficits, no facial deformity, AO x3, power 5/5 in all limbs Data 01/23/24 15:04 01/23/24 15:04 Micro: Microbiology 01/23/24 15:40 Blood Culture - Preliminary Blood SPECIMEN COLLECTED 01/23/24 15:04 Blood Culture - Preliminary Blood SPECIMEN COLLECTED A&P Assessment and plan (1) AMS (altered mental status): (2) Hypernatremia: (3) Acute renal insufficiency: (4) Urinary tract infection: (5) Advanced dementia: Plan Altered mental status: In setting of worsening baseline dementia. In setting of hypernatremia due to dehydration from poor oral intake and possibility of UTI. Hypernatremia: Sodium level 155. Free water deficit of 4 on 3 L. Baseline sodium level of 1 35-1 40. Start on D5 NS at 75 cc/h. Check urine lites, urine creatinine. JOSSELIN: Baseline creatinine normal. Currently 1.8. Most likely in setting of dehydration. Fluids as above. BMP every 8 hours. She does not improve will plan for renal imaging. UTI: Cannot be sure. Patient does not have any leukocytosis, no fever. Patient unfortunately cannot inform of any symptoms. UA concerning for mild UTI. Past cultures positive for ESBL E. coli. For now start on IV meropenem every 8 hourly. Follow-up blood culture and urine culture. Continue other chronic oral medications for high blood pressure and dementia along with Xanax as needed. Sitter Haldol as needed for agitation. CODE STATUS: As per the nursing ambulated patient is on palliative care. Discussed detail with patient's daughter at bedside and son/DPOA Mr. Dueñas over the phone. Patient is palliative care but for now because her symptoms have progressed progressively over last 1 week they would want to try she would improve with improvement in her dehydration and would like the treatment medically as much as possible for now. If she has recurrence of symptoms they would not pursue any further treatment. CODE STATUS for now DNR/DNI N.p.o. Protonix OPD prophylaxis Heparin 5000 every 12 hourly for DVT prophylaxis. Attestations 2 Medical Necessity Statement*: Admission for more than 2 midnights for management of altered mental status in setting of baseline dementia due to hypernatremia, JOSSELIN from poor oral intake, possible UTI Diagnoses AMS (altered mental status) R41.82 Hypernatremia E87.0 Acute renal insufficiency N28.9 Urinary tract infection N39.0 Advanced dementia F03.C0
[2024-01-23 16:00] LABS: Covid PCR NEGATIVE (Negative); Influenza A NEGATIVE (Negative); Influenza B NEGATIVE (Negative); Respiratory Syncytial Virus Ce NEGATIVE (Negative)
[2024-01-23 16:21] VITALS: BP 148/103; PULSE 73; RESP 18; O2SAT 92
[2024-01-23] MEDS: meropenem 500 mg SDV IVP (16:26)
[2024-01-23 16:38] LABS: Procalcitonin 0.08 ng/mL (0-0.5)
[2024-01-23 16:39] LABS: Potassium, Radom Urine 55 mmol/L; Urine Random Chloride 88 mmol/L; Urine Random Sodium 110 mmol/L
[2024-01-23 16:40] LABS: Iron 124 ug/dL (37-145); Percent Saturation 65.2 % (20-50); Total Iron Binding Capacity 190 mcg/dl; Unsaturated Iron Binding 66 ug/dL (112-347)
[2024-01-23 18:19] VITALS: BP 143/89; PULSE 71; RESP 16; O2SAT 91
[2024-01-23 19:35] LABS: Anion Gap 13.1 (5-19); Blood Urea Nitrogen 51 mg/dL (8-23); Calcium 9.1 mg/dL (8.5-10.5); Carbon Dioxide 24 mmol/L (22-29); Chloride 123 mmol/L (98-107); Creatinine Clr Calc Pharmacy 26.9154; Glucose 96 mg/dL (65-115); Osmolality Calculated 336 mOsm/kg (285-295); Potassium 4.1 mmol/L (3.5-5.1); Sodium 156 mmol/L (136-145); Vitamin B12 377 pg/mL (232-1245)
[2024-01-23] MEDS: dextrose 5%-sod chloride 0.45% 1,000 ML 75 ML IV (19:41)
[2024-01-23] MEDS: pantoprazole 40 mg SDV IVP (19:41)
[2024-01-23] MEDS: quetiapine 25 mg Tablet 75 MG PO (19:42)
[2024-01-23] MEDS: memantine 5 mg tablet 10 MG PO (19:42)
[2024-01-23] MEDS: amlodipine 10 mg Tablet PO (19:42)
[2024-01-23] MEDS: donepezil 5 MG Tablet 10 MG PO (19:42)
[2024-01-23] MEDS: heparin 5,000 unit/mL INJ 1 mL 5000 UNIT SUBCUT (19:54)
[2024-01-23 20:00] VITALS: BP 115/59; PULSE 80; RESP 17; TEMP 36.2; O2SAT 95
[2024-01-23 22:00] VITALS: PULSE 72
[2024-01-23 23:04] VITALS: BP 110/58; PULSE 77; RESP 16; TEMP 36.2; O2SAT 94
[2024-01-24] VITALS (9 sets, daily range): BP systolic 112–176; BP diastolic 60–136; PULSE 55–83; RESP 16–18; TEMP 36.3–36.8; O2SAT 90–96
[2024-01-24] MEDS: meropenem 500 mg SDV IVP ×2 (03:28→18:01)
[2024-01-24] MEDS: ALPRAZolam 0.5 mg Tablet 0.25 MG PO (05:08)
[2024-01-24] MEDS: quetiapine 25 mg Tablet PO (05:09)
[2024-01-24] MEDS: heparin 5,000 unit/mL INJ 1 mL 5000 UNIT SUBCUT ×2 (05:24→18:01)
[2024-01-24 05:46] LABS: Basophils # 0.1 10^3/uL (0.0-0.1); Basophils % 0.7 %; Eosinophils # 0.3 10^3/uL (0.0-0.8); Eosinophils % 4.6 %; Hematocrit 46.5 % (36-47); Lymphocytes # 2.5 10^3/uL (0.8-4.8); Lymphocytes % 36.8 %; Mean Corpuscular HGB Conc 30.8 g/dL (30-55); Mean Corpuscular Hemoglobin 30.8 pg (27-33); Mean Corpuscular Volume 100.2 fl (85-98); Monocytes # 0.5 10^3/uL (0.2-0.9); Monocytes % 6.8 %; Neutrophils # 3.51 10^3/uL (1.8-7.7); Nucleated Red Blood Cells % 0 %; Platelet Count 169 10^3/cmm (157-399); Red Blood Count 4.64 10^6/uL (3.85-5.65); Red Cell Distribution Width 12.8 % (12.1-15.1)
[2024-01-24 06:05] LABS: Estmated Average Glucose 111; Hemoglobin A1C 5.5 % (4.0-6.0)
[2024-01-24 06:06] LABS: Anion Gap 13.7 (5-19); Blood Urea Nitrogen 39 mg/dL (8-23); Carbon Dioxide 24 mmol/L (22-29); Chloride 123 mmol/L (98-107); Chol HDL Ratio 6.59 mg/dL (0.0-4.40); Cholesterol 191 mg/dL (0-200); Creatinine Clr Calc Pharmacy 33.6443; Glucose 100 mg/dL (65-115); HDL Cholesterol 29 mg/dL (60-100); LDL Cholesterol Calculated 140 mg/dL (50-129); LDL HDL Ratio 4.83 RATIO (0.00-3.22); Osmolality Calculated 333 mOsm/kg (285-295); Potassium 3.7 mmol/L (3.5-5.1); Sodium 157 mmol/L (136-145); Triglycerides 109 mg/dL (0-150)
[2024-01-24 06:07] LABS: Alanine Aminotransferase 14 U/L (0-33); Albumin Level 3.7 g/dL (3.5-5.2); Alkaline Phosphatase 53 U/L (35-105); Anion Gap 12.7 (5-19); Aspartate Amino Transferase 18 U/L (0-32); Blood Urea Nitrogen 36 mg/dL (8-23); Carbon Dioxide 23 mmol/L (22-29); Chloride 125 mmol/L (98-107); Creatinine Clr Calc Pharmacy 33.6443; Globulin 3.3 g/dL (1.3-4.6); Glucose 100 mg/dL (65-115); Magnesium 2.6 mg/dL (1.7-2.3); Osmolality Calculated 332 mOsm/kg (285-295); Phosphorus 2.6 mg/dL (2.5-4.5); Potassium 3.7 mmol/L (3.5-5.1); Sodium 157 mmol/L (136-145); Total Bilirubin 0.4 mg/dL (0.15-1.2)
[2024-01-24 06:12] LABS: Procalcitonin 0.05 ng/mL (0-0.5)
[2024-01-24 06:22] LABS: Folate Level 18.3 ng/mL (4.8-37.3)
[2024-01-24] MEDS: dextrose 5% 1,000 ML 100 ML IV ×2 (08:35→20:14)
[2024-01-24] MEDS: sertraline 100 mg Tablet PO (09:05)
[2024-01-24] MEDS: memantine 5 mg tablet 10 MG PO ×2 (09:05→20:14)
[2024-01-24 10:58] LABS: Anion Gap 14.6 (5-19); Blood Urea Nitrogen 33 mg/dL (8-23); Calcium 8.6 mg/dL (8.5-10.5); Carbon Dioxide 20 mmol/L (22-29); Chloride 122 mmol/L (98-107); Creatinine Clr Calc Pharmacy 33.6443; Glucose 107 mg/dL (65-115); Osmolality Calculated 324 mOsm/kg (285-295); Potassium 3.6 mmol/L (3.5-5.1); Sodium 153 mmol/L (136-145)
--- NOTE | 2024-01-24 14:55 | P.PN_ITS ---
Subjective 2 Subjective: No acute events overnight. Seen with daughter at bedside. Patient continues to remain at her baseline mentation. Has remained hemodynamically stable and afebrile. Vitals/I&O/Wt Last Vital Signs Temp 98.0 F 01/24/24 11:36 Pulse 67 01/24/24 11:36 Resp 16 01/24/24 11:36 BP 125/71 01/24/24 11:36 Pulse Ox 94 01/24/24 11:36 O2 Del Method Room Air 01/24/24 11:36 01/23/24 01/24/24 01/24/24 22:59 06:59 14:59 Intake Total 1000 / 1000 600 / 1600 1000 / 1000 Output Total 700 / 700 Balance 1000 / 1000 -100 / 900 1000 / 1000 Weight last 48 hrs Weight 74.843 kg Weight 74.843 kg Weight 74.843 kg Physical Exam 2 Narrative: General: No acute distress, AO x1, dehydrated HEENT: PERRLA, pupils bilaterally equal and reactive Chest: Normal vesicular breath sounds, no added sounds, equal good air entry bilaterally CVS: S1-S2 regular, no murmurs, no tachycardia, no gallops, no rubs Abdomen: Soft, nontender, no organomegaly, bowel sounds present Neuro: No focal deficits, no facial deformity, AO x3, power 5/5 in all limbs Urinary Catheter Management: Fishman: Cath Placed During This Visit: yes Reason for Continuing Indwelling Catheter: Acute Urinary Retention or Obstruction Urinary Catheter Date of Insertion: 01/23/24 Urinary Catheter Time of Insertion: 18:20 Data 01/24/24 05:26 01/24/24 10:29 Micro: Microbiology 01/23/24 15:00 Urine Culture - Preliminary Urine,Clean Catch Gram Negative Rods Gram Negative Rods#2 01/23/24 15:57 Bacterial Antigens - Final Urine Kidney 01/23/24 15:40 Blood Culture - Preliminary Blood SPECIMEN COLLECTED 01/23/24 15:04 Blood Culture - Preliminary Blood SPECIMEN COLLECTED A&P Assessment and plan (1) AMS (altered mental status): (2) Hypernatremia: (3) Acute renal insufficiency: (4) Urinary tract infection: (5) Advanced dementia: Plan Altered mental status: In setting of worsening baseline dementia. In setting of hypernatremia due to dehydration from poor oral intake and possibility of UTI. Hypernatremia: Sodium level 155. Free water deficit of 3-4 L. Baseline sodium level of 1 35-1 40. Start on D5 NS at 75 cc/h. Check urine lites, urine creatinine. JOSSELIN: Baseline creatinine normal. Currently 1.8. Most likely in setting of dehydration. Fluids as above. BMP every 8 hours. She does not improve will plan for renal imaging. UTI: Cannot be sure. Patient does not have any leukocytosis, no fever. Patient unfortunately cannot inform of any symptoms. UA concerning for mild UTI. Past cultures positive for ESBL E. coli. For now start on IV meropenem every 8 hourly. Follow-up blood culture and urine culture. Continue other chronic oral medications for high blood pressure and dementia along with Xanax as needed. Sitter Haldol as needed for agitation. CODE STATUS: As per the nursing ambulated patient is on palliative care. Discussed detail with patient's daughter at bedside and son/DPOA Mr. Dueñas over the phone. Patient is palliative care but for now because her symptoms have progressed progressively over last 1 week they would want to try she would improve with improvement in her dehydration and would like the treatment medically as much as possible for now. If she has recurrence of symptoms they would not pursue any further treatment. CODE STATUS for now DNR/DNI N.p.o. Protonix OPD prophylaxis Heparin 5000 every 12 hourly for DVT prophylaxis. Plan for the day: Sodium level improved to 153. Switch fluid to D5W at 100 cc/h. Continue to monitor BMP every 8 hours. Strict input output charting. Creatinine improving down to 1.2. Follow-up blood and urine cultures. Continue with IV meropenem as per creatinine clearance for now for concern for history of ESBL E. coli UTI. Discussed in detail with patient daughter at bedside that if patient's sodium level does not improve with IV fluids he might have to consider NG tube placement and free water flushes. Discussed about the possibility of discomfort with the NG tube in place. Patient daughter will discuss further with her brother before making any decision. Agreeable for continuous current treatment for now. Keep NPO. Will restart diet once patient is more awake and alert. Continue other chronic home medications. Attestations 2 Medical Necessity Statement*: Requires further hospitalization for management of ultimately status in setting of advanced dementia in a patient admitted with hypernatremia, possible UTI, JOSSELIN in setting of dehydration from poor oral intake Diagnoses AMS (altered mental status) R41.82 Hypernatremia E87.0 Acute renal insufficiency N28.9 Urinary tract infection N39.0 Advanced dementia F03.C0
[2024-01-24] MEDS: pantoprazole 40 mg SDV IVP (18:01)
[2024-01-24 19:22] LABS: Anion Gap 14.7 (5-19); Blood Urea Nitrogen 31 mg/dL (8-23); Calcium 8.6 mg/dL (8.5-10.5); Carbon Dioxide 21 mmol/L (22-29); Chloride 119 mmol/L (98-107); Creatinine Clr Calc Pharmacy 40.3731; Glucose 103 mg/dL (65-115); Osmolality Calculated 319 mOsm/kg (285-295); Potassium 3.7 mmol/L (3.5-5.1); Sodium 151 mmol/L (136-145)
[2024-01-24] MEDS: quetiapine 25 mg Tablet 75 MG PO (20:13)
[2024-01-24] MEDS: amlodipine 10 mg Tablet PO (20:13)
[2024-01-24] MEDS: donepezil 5 MG Tablet 10 MG PO (20:14)
[2024-01-25] VITALS (8 sets, daily range): BP systolic 122–143; BP diastolic 78–83; PULSE 51–101; RESP 15–22; TEMP 36.6–37.3; O2SAT 85–94
[2024-01-25 02:29] LABS: Basophils % 0.6 %; Eosinophils # 0.3 10^3/uL (0.0-0.8); Eosinophils % 4.6 %; Hematocrit 43.5 % (36-47); Lymphocytes # 2.9 10^3/uL (0.8-4.8); Lymphocytes % 45.2 %; Mean Corpuscular HGB Conc 31.3 g/dL (30-55); Mean Corpuscular Hemoglobin 31.1 pg (27-33); Mean Corpuscular Volume 99.3 fl (85-98); Mean Platelet Volume 12.1 fL (7.4-10.4); Monocytes # 0.4 10^3/uL (0.2-0.9); Monocytes % 6.5 %; Neutrophils # 2.78 10^3/uL (1.8-7.7); Neutrophils % 43.1 %; Nucleated Red Blood Cells % 0 %; Platelet Count 140 10^3/cmm (157-399); Red Blood Count 4.38 10^6/uL (3.85-5.65); Red Cell Distribution Width 12.2 % (12.1-15.1); White Blood Count 6.46 10^3/uL (3.29-11.43)
[2024-01-25 02:51] LABS: Alanine Aminotransferase 21 U/L (0-33); Albumin Level 3.4 g/dL (3.5-5.2); Alkaline Phosphatase 51 U/L (35-105); Anion Gap 9.6 (5-19); Aspartate Amino Transferase 29 U/L (0-32); Blood Urea Nitrogen 30 mg/dL (8-23); Calcium 8.6 mg/dL (8.5-10.5); Carbon Dioxide 25 mmol/L (22-29); Chloride 115 mmol/L (98-107); Creatinine Clr Calc Pharmacy 33.6443; Glucose 95 mg/dL (65-115); Osmolality Calculated 308 mOsm/kg (285-295); Potassium 3.6 mmol/L (3.5-5.1); Sodium 146 mmol/L (136-145); Total Bilirubin 0.6 mg/dL (0.15-1.2); Total Protein 6.4 g/dL (6.6-8.7)
[2024-01-25] MEDS: meropenem 500 mg SDV IVP (04:45)
[2024-01-25] MEDS: quetiapine 25 mg Tablet PO (04:45)
[2024-01-25] MEDS: ALPRAZolam 0.5 mg Tablet 0.25 MG PO ×2 (04:45→14:43)
[2024-01-25] MEDS: heparin 5,000 unit/mL INJ 1 mL 5000 UNIT SUBCUT ×2 (04:45→18:33)
[2024-01-25] MEDS: dextrose 5% 1,000 ML 100 ML IV (04:46)
[2024-01-25] MEDS: sertraline 100 mg Tablet PO (09:21)
[2024-01-25] MEDS: memantine 5 mg tablet 10 MG PO ×2 (09:21→20:34)
--- NOTE | 2024-01-25 10:03 | PC.SOCIAL ---
IMM Update pg 2 of IMM Updated and reviewed w/ patient's daughter. Copy provided and copy dated, initialed and placed in chart.
[2024-01-25 13:09] LABS: Anion Gap 11.6 (5-19); Blood Urea Nitrogen 25 mg/dL (8-23); Calcium 8.5 mg/dL (8.5-10.5); Carbon Dioxide 23 mmol/L (22-29); Chloride 111 mmol/L (98-107); Glucose 92 mg/dL (65-115); Osmolality Calculated 298 mOsm/kg (285-295); Potassium 3.6 mmol/L (3.5-5.1); Sodium 142 mmol/L (136-145)
--- NOTE | 2024-01-25 13:31 | P.PN_ITS ---
Subjective 2 Subjective: No acute events overnight. Patient has remained hemodynamically stable and afebrile. Seen with daughter at bedside. Patient continues to mumble in bed. Wakes up to verbal and physical stimulus but does not alert. Vitals/I&O/Wt Last Vital Signs Temp 98.7 F 01/25/24 08:00 Pulse 62 01/25/24 08:00 Resp 16 01/25/24 08:00 BP 143/79 01/25/24 08:00 Pulse Ox 85 L 01/25/24 08:00 O2 Del Method Room Air 01/25/24 04:00 01/24/24 01/25/24 01/25/24 22:59 06:59 14:59 Intake Total 1000 / 2000 853.333 / 2853.333 Output Total 450 / 450 200 / 650 Balance 550 / 1550 653.333 / 2203.333 Weight last 48 hrs Weight 69.853 kg Weight 69.309 kg Weight 74.843 kg Weight 74.843 kg Weight 74.843 kg Physical Exam 2 Narrative: General: No acute distress, AO x1, HEENT: PERRLA, pupils bilaterally equal and reactive Chest: Normal vesicular breath sounds, no added sounds, equal good air entry bilaterally CVS: S1-S2 regular, no murmurs, no tachycardia, no gallops, no rubs Abdomen: Soft, nontender, no organomegaly, bowel sounds present Neuro: No focal deficits, no facial deformity, AO x3, power 5/5 in all limbs Urinary Catheter Management: Fishman: Cath Placed During This Visit: yes Reason for Continuing Indwelling Catheter: Other Urinary Catheter Date of Insertion: 01/23/24 Urinary Catheter Time of Insertion: 18:20 Data 01/25/24 02:20 01/25/24 12:20 Micro: Microbiology 01/23/24 15:00 Urine Culture - Final Urine,Clean Catch Escherichia coli Escherichia coli#2 01/23/24 15:40 Blood Culture - Preliminary Blood NEGATIVE TO DATE 01/23/24 15:04 Blood Culture - Preliminary Blood NEGATIVE TO DATE A&P Assessment and plan (1) AMS (altered mental status): (2) Hypernatremia: (3) Acute renal insufficiency: (4) Urinary tract infection: (5) Advanced dementia: Plan Altered mental status: In setting of worsening baseline dementia. In setting of hypernatremia due to dehydration from poor oral intake and possibility of UTI. Hypernatremia: Sodium level 155. Free water deficit of 3-4 L. Baseline sodium level of 1 35-1 40. Start on D5 NS at 75 cc/h. Check urine lites, urine creatinine. JOSSELIN: Baseline creatinine normal. Currently 1.8. Most likely in setting of dehydration. Fluids as above. BMP every 8 hours. She does not improve will plan for renal imaging. UTI: Cannot be sure. Patient does not have any leukocytosis, no fever. Patient unfortunately cannot inform of any symptoms. UA concerning for mild UTI. Past cultures positive for ESBL E. coli. For now start on IV meropenem every 8 hourly. Follow-up blood culture and urine culture. Continue other chronic oral medications for high blood pressure and dementia along with Xanax as needed. Sitter Haldol as needed for agitation. CODE STATUS: As per the nursing ambulated patient is on palliative care. Discussed detail with patient's daughter at bedside and son/DPOA Mr. Dueñas over the phone. Patient is palliative care but for now because her symptoms have progressed progressively over last 1 week they would want to try she would improve with improvement in her dehydration and would like the treatment medically as much as possible for now. If she has recurrence of symptoms they would not pursue any further treatment. CODE STATUS for now DNR/DNI N.p.o. Protonix OPD prophylaxis Heparin 5000 every 12 hourly for DVT prophylaxis. Plan for the day: Sodium level improving down to 142 today. Continue with current IV hydration. JOSSELIN resolving. Creatinine down to 1.2. Continue to monitor BMP daily for now. Continue with D5 NS at 75 cc/h. Appreciate urine culture results. Blood cultures negative. No concern for ESBL this time. Continue with current IV meropenem. Will transition over to oral Levaquin on discharge to finish a 5-day course. DC Fishman catheter. Keep NPO. Speech evaluation. Start on diet accordingly. Attestations 2 Medical Necessity Statement*: Requires further hospitalization for management of hypernatremia in setting of dehydration from poor oral intake due to advanced Alzheimer's, possible E. coli UTI Diagnoses AMS (altered mental status) R41.82 Hypernatremia E87.0 Acute renal insufficiency N28.9 Urinary tract infection N39.0 Advanced dementia F03.C0
[2024-01-25] MEDS: dextrose 5%-sod chloride 0.9% 1,000 ML 75 ML IV (14:44)
[2024-01-25] MEDS: meropenem 1,000 mg SDV 1000 MG IVP (16:02)
[2024-01-25] MEDS: pantoprazole 40 mg SDV IVP (18:34)
[2024-01-25] MEDS: donepezil 5 MG Tablet 10 MG PO (20:34)
[2024-01-25] MEDS: amlodipine 10 mg Tablet PO (20:34)
[2024-01-25] MEDS: quetiapine 25 mg Tablet 75 MG PO (20:34)
[2024-01-25 21:31] LABS: Anion Gap 11.3 (5-19); Blood Urea Nitrogen 21 mg/dL (8-23); Calcium 7.3 mg/dL (8.5-10.5); Carbon Dioxide 19 mmol/L (22-29); Chloride 117 mmol/L (98-107); Glucose 411 mg/dL (65-115); Osmolality Calculated 318 mOsm/kg (285-295); Potassium 3.3 mmol/L (3.5-5.1); Sodium 144 mmol/L (136-145)
[2024-01-26] VITALS: BP 109/61; PULSE 58; RESP 17; TEMP 36.3; O2SAT 89
[2024-01-26] MEDS: dextrose 5%-sod chloride 0.9% 1,000 ML 75 ML IV (03:12)
[2024-01-26 04:00] VITALS: BP 159/74; PULSE 55; RESP 14; TEMP 36.7; O2SAT 97
[2024-01-26] MEDS: meropenem 1,000 mg SDV 1000 MG IVP (04:55)
[2024-01-26 06:00] VITALS: PULSE 55
[2024-01-26] MEDS: heparin 5,000 unit/mL INJ 1 mL 5000 UNIT SUBCUT (06:10)
[2024-01-26] MEDS: ALPRAZolam 0.5 mg Tablet 0.25 MG PO (06:11)
[2024-01-26] MEDS: quetiapine 25 mg Tablet PO (06:11)
[2024-01-26 07:55] VITALS: BP 136/75; PULSE 85; RESP 17; TEMP 37.1; O2SAT 95
[2024-01-26] MEDS: sertraline 100 mg Tablet PO (08:15)
[2024-01-26] MEDS: memantine 5 mg tablet 10 MG PO (08:15)
--- NOTE | 2024-01-26 10:20 | PC.CHAP ---
Pastoral Care Encounter/Spiritual Assessment Type of Contact [] Declined fixer boarding room visit [] Patient/Family/Request visit [] Outpatient visit [] Follow-up visit [] Physician referral [] Code/Alert [x] Routine visit [] Staff referral [] Actively dying [] Patient sleeping [x] Family support [] [] Out of room [] Palliative care [] [] Receiving care in room [] Pre-surgical visit [] Trauma [] Long length of stay [] ICU visit [] Other: Relational/Emotional Strength [] Patient feels connected with others/family/visitors/staff [] Distress [] Loneliness/isolation [] Abandonment Spirituality of Patient [x] Person of Jacquelyn [] Attends Sabianist of their Jacquelyn [] Believes in Prayer [] Reads Bible or Anglican materials [] There are Spiritual issues to be addressed Drill Hand Interventions [x] Prayer [x] Active listening [x] Non-anxious presence [x] Spiritual/emotional support [] Crisis/trauma care [] Spiritual counseling [] Bereavement support [] Provided bereavement packet [] Provided Bible/devotional materials [] Provided toy/stuffed animal, coloring book to patient or family member [] Provided Communion [] Anointing/[place] [] Salvation [x] Completed spiritual assessment [] Other: Impact on Illness or Injury [] Angry [] Fearful [] Anxious [] Often cries [] Exhaustion [] Unable to work [] Unable to attend jewish [] Unable to walk/stand [] Unable to read [] Unable to drive [] Unable to eat/drink [] Unable to sleep [] Unable to be with family [] Patient intubated [] Other: Summary Time spent with patient 5 min
[2024-01-26 11:18] LABS: Basophils % 0.5 %; Eosinophils # 0.3 10^3/uL (0.0-0.8); Eosinophils % 4.4 %; Hematocrit 42.6 % (36-47); Lymphocytes # 2.9 10^3/uL (0.8-4.8); Lymphocytes % 37.2 %; Mean Corpuscular HGB Conc 31.2 g/dL (30-55); Mean Corpuscular Volume 99.3 fl (85-98); Mean Platelet Volume 12.4 fL (7.4-10.4); Monocytes # 0.6 10^3/uL (0.2-0.9); Monocytes % 7.3 %; Neutrophils # 3.91 10^3/uL (1.8-7.7); Neutrophils % 50.3 %; Nucleated Red Blood Cells % 0 %; Platelet Count 135 10^3/cmm (157-399); Red Blood Count 4.29 10^6/uL (3.85-5.65); Red Cell Distribution Width 11.9 % (12.1-15.1); White Blood Count 7.77 10^3/uL (3.29-11.43)
[2024-01-26 11:41] LABS: Alanine Aminotransferase 27 U/L (0-33); Albumin Level 3.2 g/dL (3.5-5.2); Alkaline Phosphatase 50 U/L (35-105); Anion Gap 12.9 (5-19); Aspartate Amino Transferase 31 U/L (0-32); Blood Urea Nitrogen 19 mg/dL (8-23); Carbon Dioxide 21 mmol/L (22-29); Chloride 116 mmol/L (98-107); Globulin 2.8 g/dL (1.3-4.6); Glucose 92 mg/dL (65-115); Osmolality Calculated 304 mOsm/kg (285-295); Potassium 3.9 mmol/L (3.5-5.1); Sodium 146 mmol/L (136-145); Total Bilirubin 0.4 mg/dL (0.15-1.2)
[2024-01-26 11:46] VITALS: BP 116/70; PULSE 60; RESP 17; TEMP 36.4; O2SAT 90
[2024-01-26 12:01] LABS: SARS Covid-2 Antigen negative (Negative)
--- NOTE | 2024-01-26 12:26 | PM.DCS ---
Discharge Providers Date of Admission: 01/23/24 16:02 Date of Discharge: January 26, 2024 Attending Provider at Admission: Karl Weber MD Attending Provider at Discharge: Karl Weber MD Primary Care Provider: Nayeli Banuelos MD Diagnoses at Discharge Discharge Diagnosis (1) AMS (altered mental status): Status: Acute (2) Hypernatremia: Status: Acute (3) Acute renal insufficiency: Status: Acute (4) Urinary tract infection: Status: Acute (5) Advanced dementia: Status: Acute Reason for Visit Reason for Visit: weakness Hospital Course Hospital Course Nury Terrell is a 83 year old female with past medical history of advanced dementia coming from shelter, hypertension presents to the ER today with her daughter because concern for lethargy, worsening mentation which has been getting worse over last 1 week. As per daughter usually she is able to feed the patient but today patient was refusing her food and has been less steady on her feet for last 1 week. Patient's appetite has been decreasing over last 1 week. In the ER she was found to be having hyponatremia with acute kidney injury with concerns for mild UTI. Patient is awake, not alert seem to be at baseline mentation from dementia. Patient was admitted to the hospital further evaluation and management of hypernatremia. Patient was started on treatment with IV fluids and broad-spectrum antibiotics given her history of ESBL E. coli UTI. Her sodium levels gradually improved and has been down to her baseline of around 140s for more than 24 hours. Urine culture was positive for 2 different type of E. coli both sensitive to Levaquin. Her kidney functions are back to her baseline. Goals of care discussions were done in detail with patient's daughter at bedside and son/DPOA over the phone. Discussions were as follows. Patient is palliative care but for now because her symptoms have progressed progressively over last 1 week they would want to try she would improve with improvement in her dehydration and would like the treatment medically as much as possible for now. If she has recurrence of symptoms they would not pursue any further treatment. She has been discharged back to SNF on oral cefdinir for 3 more days advised to maintain oral hydration with up to 2 to 3 L of liquid daily as possible. Patient has remained on her baseline mentation of being AO x 1 during hospitalization. Physical Exam Narrative: General: No acute distress, AO x1, HEENT: CEDRICK pupils bilaterally equal and reactive Chest: Normal vesicular breath sounds, no added sounds, equal good air entry bilaterally CVS: S1-S2 regular, no murmurs, no tachycardia, no gallops, no rubs Abdomen: Soft, nontender, no organomegaly, bowel sounds present Neuro: No focal deficits, no facial deformity, AO x3, power 5/5 in all limbs Urinary Catheter Management: Fishman: Cath Placed During This Visit: yes Reason for Continuing Indwelling Catheter: Acute Urinary Retention or Obstruction Urinary Catheter Date of Insertion: 01/23/24 Urinary Catheter Time of Insertion: 18:20 Discharge Data Studies Completed and Pending Completed Studies During Hospitalization Category Date Time Status CT chest wo con [id number] Stat Cat Scan 01/23/24 15:27 Completed XR chest 1V portable [id number] Stat Exams 01/23/24 14:34 Completed Pending at discharge Category Date Time Status Blood Culture Stat Lab 01/23/24 15:40 Results Radiology Impressions Chest X-Ray 01/23/24 14:34 IMPRESSION: Development of a focal rounded density within the right cardiophrenic angle. These findings may reflect a distended hiatal hernia. The possibility of diffuse cardiac enlargement owing to underlying pericardial effusion is felt less likely given the appearance. Follow-up CT of the chest is suggested for further evaluation Chest CT 01/23/24 15:27 IMPRESSION: 1. [id number] sliding-type hiatal hernia which accounts for the density noted on the previous chest x-ray. 2. No pericardial effusion or other acute abnormality Microbiology 01/23/24 15:00 Urine,Clean Catch Urine Culture - Final Escherichia coli Escherichia coli#2 01/23/24 15:40 Blood Blood Culture - Preliminary NEGATIVE TO DATE 01/23/24 15:04 Blood Blood Culture - Preliminary NEGATIVE TO DATE 01/23/24 15:57 Urine Kidney Bacterial Antigens - Final Laboratory Results WBC 7.77 10^3/uL (3.29-11.43) 01/26/24 11:10 RBC 4.29 10^6/uL (3.85-5.65) 01/26/24 11:10 Hgb 13.30 g/dL (11.27-16.99) 01/26/24 11:10 Hct 42.6 % (36-47) 01/26/24 11:10 MCV 99.3 fl (85-98) H 01/26/24 11:10 MCH 31.0 pg (27-33) 01/26/24 11:10 MCHC 31.2 g/dL (30-55) 01/26/24 11:10 RDW 11.9 % (12.1-15.1) L 01/26/24 11:10 Plt Count 135 10^3/cmm (157-399) L 01/26/24 11:10 MPV 12.4 fL (7.4-10.4) H 01/26/24 11:10 Neut % (Auto) 50.3 % 01/26/24 11:10 Lymph % (Auto) 37.2 % 01/26/24 11:10 Kern % (Auto) 7.3 % 01/26/24 11:10 Eos % (Auto) 4.4 % 01/26/24 11:10 Baso % (Auto) 0.5 % 01/26/24 11:10 Neut # (Auto) 3.91 10^3/uL (1.8-7.7) 01/26/24 11:10 Lymph # (Auto) 2.9 10^3/uL (0.8-4.8) 01/26/24 11:10 Kern # (Auto) 0.6 10^3/uL (0.2-0.9) 01/26/24 11:10 Eos # (Auto) 0.3 10^3/uL (0.0-0.8) 01/26/24 11:10 Baso # (Auto) 0.0 10^3/uL (0.0-0.1) 01/26/24 11:10 Nucleated RBC % (auto) 0 % 01/26/24 11:10 Nucleated RBCs # 0.0 /100WBC 01/26/24 11:10 Sodium 146 mmol/L (136-145) H 01/26/24 11:10 Potassium 3.9 mmol/L (3.5-5.1) 01/26/24 11:10 Chloride 116 mmol/L (98-107) H 01/26/24 11:10 Carbon Dioxide 21 mmol/L (22-29) L 01/26/24 11:10 Anion Gap 12.9 (5-19) 01/26/24 11:10 BUN 19 mg/dL (8-23) 01/26/24 11:10 Creatinine 1.1 mg/dL (0.5-0.9) H 01/26/24 11:10 GFR Calculation Not Reportable 01/26/24 11:10 Glucose 92 mg/dL (65-115) 01/26/24 11:10 Estimat Average Glucose 111 01/24/24 05:26 Hemoglobin A1c 5.5 % (4.0-6.0) 01/24/24 05:26 Calculated Osmolality 304 mOsm/kg (285-295) H 01/26/24 11:10 Lactic Acid 1.0 mmol/L (0.5-2.2) 01/23/24 15:04 Calcium 8.0 mg/dL (8.5-10.5) L 01/26/24 11:10 Phosphorus 2.6 mg/dL (2.5-4.5) 01/24/24 05:26 Magnesium 2.6 mg/dL (1.7-2.3) H 01/24/24 05:26 Iron 124 ug/dL (37-145) 01/23/24 15:04 TIBC 190 mcg/dl 01/23/24 15:04 % Saturation 65.2 % (20-50) H 01/23/24 15:04 Unsat Iron Binding 66 ug/dL (112-347) L 01/23/24 15:04 Total Bilirubin 0.4 mg/dL (0.15-1.2) 01/26/24 11:10 AST 31 U/L (0-32) 01/26/24 11:10 ALT 27 U/L (0-33) 01/26/24 11:10 Alkaline Phosphatase 50 U/L (35-105) 01/26/24 11:10 Total Protein 6.0 g/dL (6.6-8.7) L 01/26/24 11:10 Albumin 3.2 g/dL (3.5-5.2) L 01/26/24 11:10 Globulin 2.8 g/dL (1.3-4.6) 01/26/24 11:10 Triglycerides 109 mg/dL (0-150) 01/24/24 05:26 Cholesterol 191 mg/dL (0-200) 01/24/24 05:26 LDL Cholesterol, Calc 140 mg/dL (50-129) H 01/24/24 05:26 HDL Cholesterol 29 mg/dL (60-100) L 01/24/24 05:26 LDL/HDL Ratio 4.83 RATIO (0.00-3.22) H 01/24/24 05:26 Cholesterol/HDL Ratio 6.59 mg/dL (0.0-4.40) H 01/24/24 05:26 Vitamin B12 377 pg/mL (232-1245) 01/23/24 18:40 Folate 18.3 ng/mL (4.8-37.3) 01/24/24 05:26 Procalcitonin 0.05 ng/mL (0-0.5) 01/24/24 05: TSH 1.60 uIU/mL (0.27-4.20) 01/23/24 18:40 Urine Color Yellow (Yellow) 01/23/24 15:00 Urine Appearance Cloudy (CLEAR) A 01/23/24 15:00 Urine pH 5.5 (5-7) 01/23/24 15:00 Ur Specific Francis 1.022 (1.005-1.030) 01/23/24 15:00 Urine Protein 1+ (Negative) A 01/23/24 15:00 Urine Glucose (UA) Negative (Normal) 01/23/24 15:00 Urine Ketones Negative (Negative) 01/23/24 15:00 Urine Blood Negative (Negative) 01/23/24 15:00 Urine Nitrate Positive (Negative) A 01/23/24 15:00 Urine Bilirubin Negative (Negative) 01/23/24 15:00 Urine Urobilinogen 1.0 mg/dL (Negative) 01/23/24 15:00 Ur Leukocyte Esterase 1+ (Negative) A 01/23/24 15:00 Urine RBC 0-2 /hpf (0-2) 01/23/24 15:00 Urine WBC 21-50 /hpf (0-5) H 01/23/24 15:00 Ur Squamous Epith Cells 0-5 /hpf (0-5) 01/23/24 15:00 Amorphous Sediment Not Reportable 01/23/24 15:00 Urine Bacteria 4+ /hpf (NONE) H 01/23/24 15:00 Hyaline Casts 3.71 /lpf 01/23/24 15:00 Ur Random Sodium 110 mmol/L 01/23/24 15:00 Ur Random Potassium 55 mmol/L 01/23/24 15:00 Ur Random Chloride 88 mmol/L 01/23/24 15:00 Coronavirus (PCR) Negative (Negative) 01/23/24 15:03 Influenza A (PCR) Negative (Negative) 01/23/24 15:03 Influenza Type B (PCR) Negative (Negative) 01/23/24 15:03 RSV (PCR) Negative (Negative) 01/23/24 15:03 SARS-CoV-2 Ag (Rapid) negative (Negative) 01/26/24 11:35 Vitals Last Vital Signs Temp 97.5 F L 01/26/24 11:46 Pulse 60 01/26/24 11:46 Resp 17 01/26/24 11:46 BP 116/70 01/26/24 11:46 Pulse Ox 90 01/26/24 11:46 O2 Del Method Room Air 01/26/24 11:46 Discharge Plan Discharge Patient Disposition: Xfer SNF Condition: Stable Prescriptions: New cefdinir 300 mg capsule 300 mg PO BID 3 Days Qty: 6 0RF Continued amlodipine 10 mg tablet 10 mg PO DAILY@20 Rx Instructions: hold if dbp<60,sbp<100 donepezil 10 mg tablet 10 mg PO DAILY@20 memantine 10 mg tablet 10 mg PO BID@08,20 alprazolam 0.25 mg tablet 0.25 mg PO BID@06,14 sertraline 100 mg tablet 100 mg PO DAILY naproxen sodium [Aleve] 220 mg capsule 220 mg PO DAILY@08 loratadine [Claritin] 10 mg tablet 10 mg PO DAILY@08 naproxen sodium [Aleve] 220 mg Tablet 220 mg PO BID PRN (Reason: Pain) omeprazole 20 mg Capsule,Delayed Release(Dr/Ec) 20 mg PO QAM bisacodyl 5 mg Tablet 10 mg PO BID PRN (Reason: Constipation) quetiapine 50 mg Tablet 75 mg PO BEDTIME quetiapine 25 mg tablet 25 mg PO QAM megestrol 400 mg/10 mL (40 mg/mL) suspension 400 mg PO DAILY acetaminophen 325 mg Tablet 650 mg PO Q8H PRN (Reason: Pain) bisacodyl [Dulcolax (bisacodyl)] 10 mg Suppository 10 mg VT DAILY PRN (Reason: Constipation) Fleet Enema 19-7 gram/118 mL Enema 118 ml VT DAILY PRN (Reason: Constipation) Deep Sea Nasal 0.65 % Aerosol,Douglass 2 spray INTRANASAL Q8H PRN (Reason: dry nose) Discharge Orders: Discharge Order (Routine); Ordered 01/26/24 Ordered By: Karl Weber Referrals: [facility] [Outside] Nayeli Banuelos MD [Primary Care Provider] - Discharge Diet: As Directed Discharge Activity: Increase activity as tolerated Patient Instructions: Opioid Safety Activity Restrictions/Additional Instructions: Dysphagia level 4 diet. Maintain hydration with 2 to 3 L of fluid daily. Aspiration precaution Discharge Attestations Time Spent in Discharge Care*: greater than 30 min Specific Discharge Activities: educating and/or supporting family/caregiver, discussing with pcp/other providers, discussing with telephonic case manager/social workers/dc planners, documenting/other paperwork and evaluating patient/reviewing data Status at Discharge: Cognitive status at discharge: severely impaired cognition, Behavioral status at discharge: cooperative, Functional status at discharge: bed bound, Overall status at discharge: patient is back to baseline Quality Metrics Clinical Quality Measures [ No reported AMI, CVA or VTE this stay] Coding Level of Care Code 46687 Total time (in minutes) for Discharge: 60 Diagnoses AMS (altered mental status) R41.82 Hypernatremia E87.0 Acute renal insufficiency N28.9 Urinary tract infection N39.0 Advanced dementia F03.C0
== END 2024-01-26 14:25 | disposition skilled nursing facility (03) | DRG 683 ==
LOC: ER 16:17 → MEDSURG 17:21
PROVIDERS: Admitting Provider Student in an Organized Health Care Education/Training Program; Emergency Provider Emergency Medicine; PCP Family Medicine; Visit Provider Student in an Organized Health Care Education/Training Program
DX: N17.9 Acute kidney failure, unspecified (principal); E87.0 Hyperosmolality and hypernatremia; N39.0 Urinary tract infection, site not specified; G30.9 Alzheimer's disease, unspecified; F02.80 Dementia in other diseases classified elsewhere, unspecified severity, without behavioral disturbance, psychotic disturbance, mood disturbance, and anxiety; I10 Essential (primary) hypertension; E78.5 Hyperlipidemia, unspecified; G47.00 Insomnia, unspecified; E86.0 Dehydration
CPT/HCPCS: 0241U; 36415; 51702; 71045; 71250; 80048; 80053; 80061; 81001; 82436; 82607; 82746; 83036; 83540; 83550; 83605; 83735; 84100; 84133; 84145; 84300; 84443; 85025; 86403; 87040; 87077; 87086; 87186; 87426; 92610; 94664; 96372; 96374; 99285; J1644; J2185; J2470; J7030; J7042; J7070; J7799

== ENCOUNTER → 2024-02-26 08:57 | Outpatient (BNVA) | payer MEDICARE, MEDICAID, SELFPAY | PROVIDERS: PCP Family Medicine; Visit Provider Nurse Practitioner | DX: M17.0 Bilateral primary osteoarthritis of knee (principal); Z71.89 Other specified counseling | CPT/HCPCS: 20610; 99213; J7326 ==